=== PATIENT | female | born 1955 | race African-American/Black ===

== ENCOUNTER 2022-06-08 09:19 | Outpatient (CLI) | payer MEDICARE | END 2022-06-08 09:20 | disposition home or self-care (01) | LOC: BICMAMMO 09:19 | PROVIDERS: ATTEND Internal Medicine Endocrinology, Diabetes & Metabolism | DX: M81.0 Age-related osteoporosis without current pathological fracture (principal); N18.4 Chronic kidney disease, stage 4 (severe); Z86.018 Personal history of other benign neoplasm | CPT/HCPCS: 77080 ==

== ENCOUNTER 2022-07-12 09:27 | Outpatient (CLI) | payer MEDICARE | END 2022-07-12 09:28 | disposition home or self-care (01) | LOC: MRI 09:27 | PROVIDERS: ATTEND Internal Medicine Endocrinology, Diabetes & Metabolism | DX: E23.7 Disorder of pituitary gland, unspecified (principal); M81.8 Other osteoporosis without current pathological fracture | CPT/HCPCS: 70551; 82565 ==

== ENCOUNTER 2022-07-27 12:51 | Outpatient (CLI) | payer MEDICARE | END 2022-07-27 12:52 | disposition home or self-care (01) | LOC: ULT 12:51 | PROVIDERS: ATTEND Family Medicine | DX: I73.9 Peripheral vascular disease, unspecified (principal) | CPT/HCPCS: 93923 ==

== ENCOUNTER 2023-01-10 12:21 | Outpatient (CLI) | payer MEDICARE | END 2023-01-10 12:22 | disposition home or self-care (01) | LOC: BICMAMMO 12:21 | PROVIDERS: ATTEND Family Medicine | DX: Z12.31 Encounter for screening mammogram for malignant neoplasm of breast (principal); Z91.89 Other specified personal risk factors, not elsewhere classified | CPT/HCPCS: 77063; 77067 ==

== ENCOUNTER 2023-03-01 12:02 | Outpatient (CLI) | payer MEDICARE | END 2023-03-01 12:03 | disposition home or self-care (01) | LOC: BICRAD 12:02 | PROVIDERS: ATTEND Nurse Practitioner Family | DX: D47.2 Monoclonal gammopathy (principal); D64.9 Anemia, unspecified; M81.8 Other osteoporosis without current pathological fracture; Z79.899 Other long term (current) drug therapy; N18.4 Chronic kidney disease, stage 4 (severe); D63.1 Anemia in chronic kidney disease; R91.8 Other nonspecific abnormal finding of lung field | CPT/HCPCS: 71046 ==

== ENCOUNTER 2023-08-14 10:02 | Outpatient (CLI) | payer OTHER | END 2023-08-14 10:03 | disposition home or self-care (01) | LOC: BICRAD 10:02 | PROVIDERS: ATTEND Family Medicine | DX: M25.561 Pain in right knee (principal); M25.461 Effusion, right knee; M85.861 Other specified disorders of bone density and structure, right lower leg; M25.761 Osteophyte, right knee ==

== ENCOUNTER 2024-01-07 08:30 | Outpatient (CLI) | payer MEDICARE | END 2024-01-07 08:31 | disposition home or self-care (01) | LOC: BICMAMMO 08:30 | PROVIDERS: ATTEND Family Medicine | DX: M81.0 Age-related osteoporosis without current pathological fracture (principal) | CPT/HCPCS: 77080 ==

== ENCOUNTER 2024-04-06 07:50 | Emergency (ER) | payer MEDICARE, OTHER ==
[2024-04-06 09:13] LABS: #Basophils 0.07 10x3/uL (0.0-0.2); %Eosinophils 3.4 % (0.0-10.0); %Monocytes 12.1 % (0.0-10.0); %Neutrophils 65.2 % (42.0-75.0); Hematocrit 36.5 % (36.0-47.0); Hemoglobin 11.2 g/dL (12.0-16.0); Mean Corpuscular HGB CONC 30.7 g/dL (32.0-36.0); Mean Corpuscular Hemoglobin 33.2 pg (27.0-31.0); Mean Corpuscular Volume 108.3 fL (78.0-98.0); Mean Platelet Volume 10.2 fL (7.4-10.4); Platelet Count 175 10x3/uL (130-400); RBC Distribution Width 14.1 % (11.5-14.5); Red Blood Cell (RBC) Count 3.37 mill/uL (4.20-5.40)
[2024-04-06] MEDS ORDERED: fentaNYL 50 mcg/mL 1 mL Vial ONE (09:16)
[2024-04-06 09:29] LABS: ALT (SGPT) 40 U/L (8-55); AST (SGOT) 52 U/L (5-34); Albumin 2.8 g/dL (3.4-4.8); Alkaline Phosphatase 86 U/L (40-110); Anion Gap 12 mmol/L (10-20); BUN (Urea Nitrogen) 40 mg/dL (9.8-20.1); Bilirubin, Total 0.4 mg/dL (0.2-1.2); Calc. Creatinine Clearance 0 mL/min (70-130); Calcium 7.4 mg/dL (7.8-10.44); Carbon Dioxide 18 mmol/L (23-31); Chloride 115 mmol/L (98-107); Estimated GFR 34; Globulin 4.6 g/dL (2.4-3.5); Glucose 60 mg/dL (83-110); Protein, Total 7.4 g/dL (5.8-8.1); Sodium 141 mmol/L (136-145); Uric Acid 7.9 mg/dL (2.6-6.0)
== END 2024-04-06 12:01 | disposition home or self-care (01) ==
LOC: ERS 07:50
DX: M10.062 Idiopathic gout, left knee (principal); M25.462 Effusion, left knee; E16.2 Hypoglycemia, unspecified; E11.22 Type 2 diabetes mellitus with diabetic chronic kidney disease; N18.9 Chronic kidney disease, unspecified
CPT/HCPCS: 73564; 80053; 82962; 83605; 84550; 85025; 86141; J3010; 36415; 36416; 96372; 99283